=== PATIENT | male | born 1935 | race Asian ===

== ENCOUNTER 2019-03-28 19:37 | Emergency (ER) | payer OTHER ==
[~2019-03-28] VITALS: Ht 167.6 cm; Wt 69.9 kg
--- NOTE | 2019-03-28 19:37 | NUR ---
PT AMBULATED FROM [facility] TO BED 4.
[2019-03-28 19:40] VITALS: BP 159/102
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
[2019-03-28] MEDS ORDERED: hydrALAZINE 25 MG TAB PO ONE (19:55)
[2019-03-28] MEDS ORDERED: hydrALAZINE 20 MG/ML VIAL IVP ONE (20:05)
[2019-03-28 20:10] VITALS: BP 128/71
--- NOTE | 2019-03-28 20:10 | NUR ---
PT BLOOD DECREASED WITHOUT MEDICATION, BP 128/71. DR SIDHU MADE AWARE.
--- NOTE | 2019-03-28 20:38 | NUR ---
PT PULLED IV OUT, STATING THAT "I NEED TO GO. I HAVE TO GO. I HAVE PEOPLE WAITING ON ME."
--- NOTE | 2019-03-28 21:20 | NUR ---
Patient discharged with v/s stable. Written and verbal after care instructions given and explained. Patient alert, oriented and verbalized understanding of instructions. Ambulatory with steady gait. All questions addressed prior to discharge. ID band removed. Patient advised to follow up with PMD. Rx of LISINOPRIL given. Patient educated on indication of medication including possible reaction and side effects. Opportunity to ask questions provided and answered.
== END 2019-03-28 21:20 | disposition home or self-care (01) ==
LOC: MED 19:37
DX: I10 Essential (primary) hypertension (principal); F03.90 Unspecified dementia, unspecified severity, without behavioral disturbance, psychotic disturbance, mood disturbance, and anxiety; N40.0 Benign prostatic hyperplasia without lower urinary tract symptoms; V89.2XXA Person injured in unspecified motor-vehicle accident, traffic, initial encounter; Y93.89 Activity, other specified; Y92.488 Other paved roadways as the place of occurrence of the external cause; Y99.8 Other external cause status
CPT/HCPCS: 99283; J0360